=== PATIENT | male | born 1985 | race Caucasian/White ===

== ENCOUNTER 2016-11-10 16:26 | Emergency (ER) | payer OTHER ==
[~2016-11-10] VITALS: Ht 185.4 cm; Wt 81.1 kg
[~2016-11-10 16:26] MED LIST: ALBUAER19 INH; AMPH30CA3 PO; CLR10 PO; MULT-506 PO
[2016-11-10 16:27] VITALS: TEMP 36.5; Ht 185.4 cm; Wt 81.1 kg
--- NOTE | 2016-11-10 16:52 | EMERGENCY ROOM VISIT NOTE ---
History Report prepared by Terry: Dandre Contreras Under the Supervision of: Dr. Beto Aguilar M.D. First contact with patient: 16:31 Chief Complaint: MENTAL HEALTH EVALUATION Stated Complaint: DEPRESSION,SUICIDAL History of Present Illness The patient is a 30 year old male who presents to the Emergency Room with complaints of worsening depression beginning a month and a half prior to arrival. He associates suicidal ideation that began one month ago with today's symptoms. The patient states he was sent to the ED by his therapist today due to his suicidal ideation. He notes he was talking to his therapist today, and stated he wanted to get up and jump off the balcony in the therapist's office. The patient states he started taking Zoloft a month ago. He notes he had a relationship that ended a couple months ago, which his therapist believed was bringing up deeper issues. 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 He denies injuring himself today. 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 Review of Systems See HPI for pertinent positives & negatives. A total of 10 systems reviewed and were otherwise negative. Past Medical & Surgical Medical Problems: (1) ADHD (attention deficit hyperactivity disorder) Surgical Problems: (1) No significant past surgical history (2) S/P appendectomy Family History Hypertension Social History Smoking Status: Never Smoker Alcohol Use: occasionally Marital Status: single Occupation Status: [employer] student Current/Historical Medications Scheduled Atomoxetine (Strattera), 80 MG PO QAM Loratadine (Claritin), 10 MG PO DAILY Sertraline (Zoloft), 50 MG PO DAILY Scheduled PRN Ibuprofen (Motrin), 400 MG PO Q6H PRN for Pain Allergies Uncoded Allergies: CATS (Allergy, Unknown, CONGESTION, 05/24/15) HORSES (Allergy, Unknown, CONGESTION, 05/24/15) Physical Exam Vital Signs Date Time Temp Pulse Resp B/P Pulse Ox O2 Delivery O2 Flow Rate FiO2 11/10/16 22:00 79 16 150/65 98 11/10/16 19:00 108 20 135/100 100 11/10/16 16:27 36.5 57 16 138/86 96 Room Air Physical Exam CONSTITUTIONAL: No acute distress HEENT: No icterus, moist mucous membranes NECK: No meningismus, trachea is midline. CARDIOVASCULAR: Regular rate, normal perfusion RESPIRATORY: Unlabored breathing. Clear to auscultation. GASTROINTESTINAL: Non-tender GENITOURINARY: No flank tenderness MUSCULOSKELETAL: Full range of motion NEUROLOGIC: No acute gross focal deficits. PSYCHIATRIC: Appropriate affect. Normal prosody of speech. SKIN: Normal for ethnicity. Medical Decision & Procedures Laboratory Results 11/10/16 17:22 Red Blood Count 5.01, Mean Corpuscular Volume 85.4, Mean Corpuscular Hemoglobin 30.3, Mean Corpuscular Hemoglobin Concent 35.5, Mean Platelet Volume 9.8, Neutrophils (%) (Auto) 74.5, Lymphocytes (%) (Auto) 15.1, Monocytes (%) (Auto) 9.6, Eosinophils (%) (Auto) 0.6, Basophils (%) (Auto) 0.2, Neutrophils # (Auto) 6.41, Lymphocytes # (Auto) 1.30, Monocytes # (Auto) 0.83, Eosinophils # (Auto) 0.05, Basophils # (Auto) 0.02 11/10/16 17:22 Test 11/10/16 17:08 11/10/16 17:22 11/10/16 17:50 Bedside Glucose 93 mg/dl (70-99) White Blood Count 8.61 K/uL (4.8-10.8) Red Blood Count 5.01 M/uL (4.7-6.1) Hemoglobin 15.2 g/dL (14.0-18.0) Hematocrit 42.8 % (42-52) Mean Corpuscular Volume 85.4 fL (80-100) Mean Corpuscular Hemoglobin 30.3 pg (25-34) Mean Corpuscular Hemoglobin Concent 35.5 g/dl (32-36) Platelet Count 261 K/uL (130-400) Mean Platelet Volume 9.8 fL (7.4-10.4) Neutrophils (%) (Auto) 74.5 % Lymphocytes (%) (Auto) 15.1 % Monocytes (%) (Auto) 9.6 % Eosinophils (%) (Auto) 0.6 % Basophils (%) (Auto) 0.2 % Neutrophils # (Auto) 6.41 K/uL (1.4-6.5) Lymphocytes # (Auto) 1.30 K/uL (1.2-3.4) Monocytes # (Auto) 0.83 K/uL (0.11-0.59) Eosinophils # (Auto) 0.05 K/uL (0-0.5) Basophils # (Auto) 0.02 K/uL (0-0.2) RDW Standard Deviation 38.7 fL (36.4-46.3) RDW Coefficient of Variation 12.4 % (11.5-14.5) Immature Granulocyte % (Auto) 0.0 % Immature Granulocyte # (Auto) 0.00 K/uL (0.00-0.02) Anion Gap 12.0 mmol/L (3-11) Est Creatinine Clear Calc Drug Dose 151.2 ml/min Estimated GFR () 138.0 Estimated GFR (Non- 119.0 BUN/Creatinine Ratio 16.6 (10-20) Calcium Level 8.9 mg/dl (8.5-10.1) Total Bilirubin 0.5 mg/dl (0.2-1) Direct Bilirubin 0.1 mg/dl (0-0.2) Aspartate Amino Transf (AST/SGOT) 13 U/L (15-37) Alanine Aminotransferase (ALT/SGPT) 29 U/L (12-78) Alkaline Phosphatase 98 U/L (45-117) Total Protein 7.6 gm/dl (6.4-8.2) Albumin 3.8 gm/dl (3.4-5.0) Globulin 3.8 gm/dl (2.5-4.0) Albumin/Globulin Ratio 1.0 (0.9-2) Thyroid Stimulating Hormone (TSH) 1.670 uIu/ml (0.300-4.500) Ethyl Alcohol mg/dL < 3.0 mg/dl (0-3) Urine Color YELLOW Urine Appearance CLEAR (CLEAR) Urine pH 8.0 (4.5-7.5) Urine Specific [place] 1.006 (1.000-1.030) Urine Protein NEG (NEG) Urine Glucose (UA) NEG (NEG) Urine Ketones NEG (NEG) Urine Occult Blood NEG (NEG) Urine Nitrite NEG (NEG) Urine Bilirubin NEG (NEG) Urine Urobilinogen NEG (NEG) Urine Leukocyte Esterase NEG (NEG) Urine Opiates Screen NEG (NEG) Urine Methadone, Qualitative NEG (NEG) Urine Barbiturates NEG (NEG) Urine Phencyclidine (PCP) Level NEG (NEG) Ur Amphetamine/Methamphetamine NEG (NEG) MDMA (Ecstasy) Screen NEG (NEG) Urine Benzodiazepines Screen NEG (NEG) Urine Cocaine Metabolite NEG (NEG) Urine Marijuana (THC) NEG (NEG) Labs reviewed by ED physician. ED Course 1638: Past medical records reviewed. The patient was evaluated in room A5. A complete history and physical examination was performed. 2139: The patient is being evaluated by [facility]. Medical Decision Differential diagnoses include but are not limited to; adjustment disorder, depression. 30-year-old presented from outpatient therapist office for psychiatric screening of depression related symptoms. Medically clear. [facility], [facility], evaluated patient and outpatient follow-up arranged. Impression Primary Impression: Depression Scribe Attestation The scribe's documentation has been prepared under my direction and personally reviewed by me in its entirety. I confirm that the note above accurately reflects all work, treatment, procedures, and medical decision making performed by me. Departure Information Referrals No Doctor, Assigned (PCP) Patient Instructions My [facility]
[2016-11-10] MEDS ORDERED: SERT50TA PO (17:17)
[2016-11-10] MEDS ORDERED: IBUP-1459 PO (17:17)
[2016-11-10] MEDS ORDERED: ATOM40CA PO (17:17)
[2016-11-10 17:33] LABS: BASO % 0.2 %; BASO ABS # 0.02 K/uL (0-0.2); COMPLETE YES; EOS % 0.6 %; HEMATOCRIT 42.8 % (42-52); LYMPH % 15.1 %; MEAN CELL VOLUME 85.4 fL (80-100); MEAN CORPUSCULAR HEMOGLOBIN 30.3 pg (25-34); MEAN CORPUSCULAR HGB CONC 35.5 g/dl (32-36); MEAN PLATELET VOLUME 9.8 fL (7.4-10.4); MONO % 9.6 %; NEUT % 74.5 %; PLATELET COUNT 261 K/uL (130-400); RED BLOOD COUNT 5.01 M/uL (4.7-6.1); WHITE BLOOD COUNT 8.61 K/uL (4.8-10.8)
[2016-11-10 17:50] LABS: BUN/CREATININE RATIO 16.6 (10-20); CALCIUM 8.9 mg/dl (8.5-10.1); CREATININE 0.8 mg/dl (0.60-1.40); POTASSIUM 3.7 mmol/L (3.5-5.1)
[2016-11-10 18:00] LABS: THYROID STIMULATING HORMONE 1.67 uIu/ml (0.300-4.500)
[2016-11-10 18:08] LABS: URINE APPEARANCE CLEAR (CLEAR); URINE BILIRUBIN NEG (NEG); URINE COLOR YELLOW; URINE NITRITE NEG (NEG); URINE SPECIFIC GRAVITY 1.006 (1.000-1.030); UROBILINOGEN NEG (NEG)
[2016-11-10 18:16] LABS: MANUAL MICROSCOPIC REQUIRED? NO; REVIEW REQ? NO
[2016-11-10 18:34] LABS: BENZODIAZEPINE, URINE NEG (NEG); COCAINE,URINE NEG (NEG); PHENCYCLIDINE, URINE NEG (NEG)
[2016-11-10 22:00] VITALS: BP 150/65; PULSE 79; O2SAT 98
== END 2016-11-10 22:53 | disposition home or self-care (01) ==
LOC: C.EDB 16:27 → C.EDA 22:53
DX: F32.9 Major depressive disorder, single episode, unspecified (principal); R45.851 Suicidal ideations; F90.0 Attention-deficit hyperactivity disorder, predominantly inattentive type; Z79.899 Other long term (current) drug therapy; Z82.49 Family history of ischemic heart disease and other diseases of the circulatory system

== ENCOUNTER 2016-11-12 13:58 | Inpatient (IN) | payer OTHER ==
[~2016-11-12] VITALS: Ht 185.4 cm; Wt 75.8 kg
[~2016-11-12 13:58] MED LIST changes: -ALBUAER19 INH; -AMPH30CA3 PO; +ATOM40CA PO; +IBUP-1459 PO; -MULT-506 PO; +SERT50TA PO
[2016-11-12 14:36] LABS: URINE APPEARANCE CLEAR (CLEAR); URINE BILIRUBIN NEG (NEG); URINE COLOR DK YELLOW; URINE NITRITE NEG (NEG); URINE SPECIFIC GRAVITY 1.025 (1.000-1.030); UROBILINOGEN NEG (NEG)
--- NOTE | 2016-11-12 14:38 | EMERGENCY ROOM VISIT NOTE ---
History Report prepared by Terry: Lilliana Liao Under the Supervision of: Dr. Harsh Guzmán D.O. First contact with patient: 14:08 Chief Complaint: MENTAL HEALTH EVALUATION Stated Complaint: DEPRESSION History of Present Illness The patient is a 30 year old male who presents to the Emergency Room with complaints of severe depression starting a few months ago and worsening 2 weeks ago. The patient also complains of suicidal ideation without a plan. He was evaluated in the Emergency Room 2 days ago for similar symptoms but reports that his symptoms have continued to worsen since he was discharged. [facility] evaluated the patient on-site and referred him to the Emergency Room. He has a history of depression. He does not have a history of suicide attempt. He takes Zoloft and denies missing any doses. He denies any drug or alcohol use. Pt denies headache, change in vision, fevers, chest pain, shortness of breath, nausea, vomiting, diarrhea, and pain with urination. Source of History: patient Onset: a few months ago Position: other (global) Symptom Intensity: severe Quality: other (depression) Timing: worsening Associated Symptoms: No SOB, No chest pain, No diarrhea, No fevers, No headache, No nausea, No vomiting Review of Systems See HPI for pertinent positives & negatives. A total of 10 systems reviewed and were otherwise negative. Past Medical & Surgical Medical Problems: (1) ADHD (attention deficit hyperactivity disorder) (2) Depression Surgical Problems: (1) No significant past surgical history (2) S/P appendectomy Family History Hypertension Social History Smoking Status: Current Some Day Smoker Alcohol Use: occasionally Marital Status: single Occupation Status: [employer] student Current/Historical Medications Scheduled Atomoxetine (Strattera), 80 MG PO QAM Loratadine (Claritin), 10 MG PO DAILY Sertraline (Zoloft), 50 MG PO DAILY Scheduled PRN Ibuprofen (Motrin), 400 MG PO Q6H PRN for Pain Allergies Uncoded Allergies: CATS (Allergy, Unknown, CONGESTION, 05/24/15) HORSES (Allergy, Unknown, CONGESTION, 05/24/15) Physical Exam Vital Signs Date Time Temp Pulse Resp B/P Pulse Ox O2 Delivery O2 Flow Rate FiO2 11/12/16 16:34 99 17 136/95 97 11/12/16 15:13 101 17 138/97 96 Room Air 11/12/16 14:03 36.8 120 18 136/83 97 Room Air Physical Exam GENERAL: Sitting up in bed, anxious, in no acute distress, nontoxic. EYE EXAM: normal conjunctiva OROPHARYNX: no exudate, no erythema, lips, buccal mucosa, and tongue normal and mucous membranes are moist NECK: supple, no nuchal rigidity, no adenopathy, non-tender LUNGS: Clear to auscultation. Normal chest wall mechanics HEART: Tachycardic rate. no murmurs, S1 normal and S2 normal ABDOMEN: abdomen soft, non-tender, normo-active bowel sounds, no masses, no rebound or guarding. BACK: Back is symmetrical on inspection and there is no deformity, no midline tenderness, no CVA tenderness. SKIN: no rashes and no bruising UPPER EXTREMITIES: upper extremities are grossly normal. LOWER EXTREMITIES: No pitting edema. NEURO EXAM: Normal sensorium, cranial nerves II-XII grossly intact, normal speech, no gross weakness of arms, no gross weakness of legs. PSYCHIATRIC: Admits to suicidal ideation without a plan. Medical Decision & Procedures Laboratory Results Test 11/12/16 14:20 Urine Color DK YELLOW Urine Appearance CLEAR (CLEAR) Urine pH 6.0 (4.5-7.5) Urine Specific [place] 1.025 (1.000-1.030) Urine Protein NEG (NEG) Urine Glucose (UA) NEG (NEG) Urine Ketones TRACE (NEG) Urine Occult Blood NEG (NEG) Urine Nitrite NEG (NEG) Urine Bilirubin NEG (NEG) Urine Urobilinogen NEG (NEG) Urine Leukocyte Esterase TRACE (NEG) Urine WBC (Auto) 1-5 /hpf (0-5) Urine RBC (Auto) 0-4 /hpf (0-4) Urine Hyaline Casts (Auto) 1-5 /lpf (0-5) Urine Epithelial Cells (Auto) 5-10 /lpf (0-5) Urine Bacteria (Auto) NEG (NEG) Urine Opiates Screen NEG (NEG) Urine Methadone, Qualitative NEG (NEG) Urine Barbiturates NEG (NEG) Urine Phencyclidine (PCP) Level NEG (NEG) Ur Amphetamine/Methamphetamine NEG (NEG) MDMA (Ecstasy) Screen NEG (NEG) Urine Benzodiazepines Screen NEG (NEG) Urine Cocaine Metabolite NEG (NEG) Urine Marijuana (THC) NEG (NEG) Laboratory results per my review. Medications Administered Medications (Trade) Dose Ordered Sig/Jen Route Start Time Stop Time Status Last Admin Dose Admin Hydroxyzine HCl (Vistaril Tab) 25 mg Q4H PRN PO 11/12/16 16:30 12/12/16 16:29 11/12/16 18:07 25 MG ED Course ED COURSE: Vital signs were reviewed and showed tachycardic. The patients medical record was reviewed The above diagnostic studies were performed and reviewed. ED treatments and interventions as stated above. 1408: The patient was evaluated in room C01B. A complete history and physical examination was performed. 1419: I discussed the patient's case with [address] [place] [address]. They are only requesting a urinalysis. 1710: Upon reevaluation, the patient is resting comfortably.I discussed my findings with the patient and he understands and agrees with the treatment plan. Based on the patients age, coexisting illnesses, exam and lab findings the decision to treat as an inpatient was made. The patient remained stable while under my care. The patient will be evaluated for further management. Medical Decision Differential diagnosis: Etiologies such as mood disorder, infection, hypoglycemia, electrolyte abnormalities, cardiac sources, intracerebral event, toxicologic, neurologic, as well as others were entertained. Patient is a 30-year-old male with a history of depression on Zoloft presents the ER for suicidal thoughts. He notes that this has been present for the past several months but has significantly worsened over the past 2 weeks. He currently has no plan. He was evaluated by [facility] in the field who recommended evaluation ER. Currently [facility] [address] is holding a bed for him awaiting for a UA and urine tox. I did discuss this with charge nurse on [address]. Since he had blood work 2 days ago he does not need any additional blood work. He was slightly tachycardic which I believe is secondary to him being fairly anxious. Patient has no other bites at this time. UA and urine tox was obtained and was unremarkable. Heart rate trended down. Patient was admitted to [address] [place] [address] on a 201. Consults Time Called: 1418 Consulting Physician: [address] [place] [address] Returned Call: 1419 I discussed the patient's case with [address] [place] [address]. They are only requesting a urinalysis. Impression Primary Impression: Mood disorder Additional Impressions: Depression Suicidal ideation Scribe Attestation The scribe's documentation has been prepared under my direction and personally reviewed by me in its entirety. I confirm that the note above accurately reflects all work, treatment, procedures, and medical decision making performed by me. Departure Information Dispostion Mental Health Acute Care Referrals No Doctor, Assigned (PCP) Patient Instructions My [facility] Problem Qualifiers Additional Impressions: Depression Depression Type: unspecified Qualified Codes: F32.9 - Major depressive disorder, single episode, unspecified
[2016-11-12 14:41] LABS: MANUAL MICROSCOPIC REQUIRED? NO; REVIEW REQ? NO
[2016-11-12 15:17] LABS: BENZODIAZEPINE, URINE NEG (NEG); COCAINE,URINE NEG (NEG); PHENCYCLIDINE, URINE NEG (NEG)
[2016-11-12] MEDS ORDERED: ALUMINUM/MAGNESIUM SUSP 30 ML UDC PO PRN (16:30)
[2016-11-12] MEDS ORDERED: SODIUM CHLORIDE 0.65% NA SOLN 45 ML (OCEAN) PRN (16:30)
[2016-11-12] MEDS ORDERED: IBUPROFEN 200 MG TAB PO PRN (16:30)
[2016-11-12] MEDS ORDERED: BISMUTH SUBSALICYLATE PER ML OMNICELL CHARGE PO PRN (16:30)
[2016-11-12] MEDS ORDERED: MAGNESIUM HYDROXIDE SUSP 30 ML UDC PO PRN (16:30)
[2016-11-12 16:34] VITALS: O2SAT 97
[2016-11-12 17:07] VITALS: BP 144/89; PULSE 116; TEMP 36.6; Ht 185.4 cm; Wt 75.8 kg
[2016-11-12] MEDS: hydrOXYzine HCL 25 MG TAB PO PRN (18:07)
[2016-11-13] MEDS: hydrOXYzine HCL 25 MG TAB PO PRN ×2 (05:22→22:43)
[2016-11-13 06:48] VITALS: BP_SYST 143; BP_SYST 150; BP_DIAS 91; BP_DIAS 92; PULSE 102; PULSE 109; TEMP 36.3
[2016-11-13] MEDS ORDERED: SERTRALINE HCL 50 MG TAB PO SCH (09:00)
[2016-11-13] MEDS: LORATADINE 10 MG TAB PO SCH (09:28)
[2016-11-13] MEDS: ATOMOXETINE 25 MG CAP PO SCH (09:29)
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
[2016-11-13] MEDS ORDERED: SERTRALINE HCL 100 MG TAB PO ONE (12:00)
[2016-11-14 06:56] VITALS: BP_SYST 146; BP_SYST 149; BP_DIAS 77; BP_DIAS 83; PULSE 111; PULSE 93; TEMP 36.5
[2016-11-14] MEDS: SERTRALINE HCL 100 MG TAB PO SCH (08:57)
[2016-11-14] MEDS: ATOMOXETINE 25 MG CAP PO SCH (08:58)
[2016-11-14] MEDS: LORATADINE 10 MG TAB PO SCH (08:58)
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
[2016-11-14] MEDS: hydrOXYzine HCL 25 MG TAB PO PRN ×2 (17:49→22:43)
[2016-11-14] MEDS: ACETAMINOPHEN 325 MG TAB PO PRN (23:09)
[2016-11-15 06:57] VITALS: BP_SYST 132; BP_SYST 137; BP_DIAS 74; BP_DIAS 81; PULSE 99; TEMP 36.5
--- NOTE | 2016-11-15 08:17 | Psychiatric Progress Notes ---
Progress Note Date of Service Nov 15, 2016. 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 Stress includes the recent breakup of a relationship triggering feelings of abandonement and self hatred. Chief Complaint "Better this morning". Subjective Patient was seen & assessed interval progress reviewed with Treatment Team. Staff report he was talking about suicidal thoughts in group, was looking out the windows and looking for places he could jump to his , and talking about why society wants to stop people from committing suicide if they want to. This morning, he states that so far, his day is going better than the past several days. He notes that mornings tend to be the hardest part of the day for him. This morning, he woke up and felt slightly more energized, and it was easier to get up, get showered, and start his day. He thinks his mood is slightly improved, but continues to struggle with feeling depressed, with low self-esteem, and anxiety. He describes intrusive thoughts of his ex-girlfriend , imagining her "with her new person being happy, while I'm in here feeling bad about myself." He also had thoughts about text messages she sent him when they broke up, which caused him to feel "shame, I feel like a weak person." He feels that takes a lot of mental energy to try to turn himself away from these thoughts. He has been working on some mindfulness activities, and is hopeful that these will help him. He continues to have suicidal thoughts, although he have lessened slightly today, although he states he's already thought about suicide twice this morning. Even so, this is an improvement from the past 2 days, where "I felt flooded by the suicidal thoughts." He reports good support from his mother and friends, which she thinks has been helpful. One of his friends is coming to visit today, and he wants to work on a plan to increase socialization after discharge. He notes that he feels "tense" just thinking about discharge planning, and worries about returning to his apartment, as he associates it with his depression. Sleep Information Total Hours of Sleep: 6.00 Meal Information Percent of Breakfast Consumed: 100 Percent of Lunch Consumed: 100 Percent of Dinner Consumed: 60 Mental Status Exam During interview pt is: alert and oriented, cooperative Appearance: appropriately dressed (in jeans and a sweater), other (good grooming and hygiene) Eye contact is: good Motor behavior is: steady gait & station, no abnormal motor movements Speech: normal in rate, rhythm & volume Affect: depressed, anxious (but reactive and appropriate) Mood is: other ("a little bit better") Thought process: goal directed, clear, coherent Thought content: reality based without delusions Suicidal thought are: present, Plan: present, Intent: denied Homicidal thoughts are: denied Hallucinations: denies auditory, denies visual Cognition: memory grossly intact, attention grossly intact Intelligence estimated to be: average Insight: impaired Judgement: impaired Impression Actively participating in treatment, attending groups and working on mindfulness activities independently, but still with SI and thoughts to jump from a building. No side effects to meds and we'll continue to increase sertraline. Continued Inpatient Care The patient requires inpateint care due to the severity of his condition and the risk for self harm if discharged. Plan (1) Major depressive disorder, recurrent severe without psychotic features 11/14 - Continue Zoloft 100 mg daily with plans to titrate as quickly as possible - Q 15 min checks for safety - Encourage participation in group and individual counseling - Family meeting with mother completed yesterday - The patient will require a psychiatric prescriber post discharge - Coordinate care with current therapist - Assist the patient to learn and utilize healthy coping strategies - Contact office of student affairs if needed 11/15 - Increase sertraline to 150mg for tomorrow; continue home dose of Strattera. - Referring to [facility] for psychiatric aftercare. - Encouraged to start working on discharge planning, making plans with friends to limit isolation after discharge. (2) ALEXA (generalized anxiety disorder) 11/14 - Zoloft as above - Explore concepts of mindfulness with the patient - Encourage exercise, distracting activities - Encourage thought stopping exercises to minimize negative self talk Discharge / Aftercare Planning Primary Care Physician: Name: [facility] Psychiatrist: Name: none Therapist: Name: Latha Lay, [address] [place] [address] Childcare Worker: Name: none Visit Code E&M Code: 60669 Risk Factors Assessment Male: Yes : Yes /single/: Yes Higher / Fall in social status: No Access to guns: No Health problems: No Mental Health Diagnoses: Yes Substance use disorders: No Previous attempt: No Previous psychiatric stay: No Hopelessness: Yes Smoker: No Protective Factors Assessment Episcopalian beliefs: No : No Responsible for young children: No Employed: Yes Stable relationships: No Supportive family: Yes Good rapport with provider: Yes Data Vital Signs Last 24 Hrs: Date Time Temp Pulse Resp B/P Pulse Ox O2 Delivery O2 Flow Rate FiO2 11/15/16 06:57 36.5 99 16 132/81 99 137/74 Meds Administered Last 24 Hrs: Meds Administered (Past 24Hrs) Medications (Trade) Dose Ordered Sig/Jen Route Start Time Stop Time Status Last Admin Dose Admin Loratadine (Claritin Tab) 10 mg DAILY PO 11/13/16 09:00 12/13/16 08:59 11/14/16 08:58 10 MG Sertraline HCl (Zoloft Tab) 50 mg DAILY PO 11/13/16 09:00 11/13/16 11:11 DC 11/13/16 09:29 50 MG Atomoxetine HCl (Strattera Cap) 75 mg QAM PO 11/13/16 09:00 11/14/16 10:25 DC 11/14/16 08:58 75 MG Sertraline HCl (Zoloft Tab) 100 mg QAM PO 11/14/16 09:00 12/14/16 08:59 11/14/16 08:57 100 MG Sertraline HCl (Zoloft Tab) 50 mg NOW ONCE PO 11/13/16 12:00 11/13/16 12:01 DC 11/13/16 12:21 50 MG
[2016-11-15] MEDS: ATOMOXETINE 40 MG CAP PO SCH (08:55)
[2016-11-15] MEDS: SERTRALINE HCL 100 MG TAB PO SCH (08:55)
[2016-11-15] MEDS: LORATADINE 10 MG TAB PO SCH (08:55)
[2016-11-15] MEDS: hydrOXYzine HCL 25 MG TAB PO PRN (23:24)
[2016-11-15] MEDS: ACETAMINOPHEN 325 MG TAB PO PRN (23:30)
[2016-11-16 06:58] VITALS: BP_SYST 122; BP_SYST 142; BP_DIAS 76; BP_DIAS 99; PULSE 124; PULSE 93; TEMP 36.5
[2016-11-16] MEDS: ATOMOXETINE 40 MG CAP PO SCH (09:13)
[2016-11-16] MEDS: LORATADINE 10 MG TAB PO SCH (09:13)
[2016-11-16] MEDS: SERTRALINE HCL 100 MG TAB PO SCH (09:14)
--- NOTE | 2016-11-16 13:59 | Psychiatric Progress Notes ---
Progress Note Date of Service Nov 16, 2016. 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 Stress includes the recent breakup of a relationship triggering feelings of abandonement and self hatred. Chief Complaint "OK". Subjective Patient was seen & assessed interval progress reviewed with Treatment Team. The patient is found in the group room looking out of the window. He admits that he is ruminating, specifically about it being a Saturday night which means that his ex will likely be going on a date tonight. He also woke early this AM again with ruminations. Overall however, he says that he is ruminating less, and is feeling closer to being able to go home. His mother is in town and caring for his dog , and would like to consider going home tomorrow if still moving forward. Mother will be able to stay through Saturday to help with the transition. When asked what he thinks other people see when they meet him, he is able to say that he is intelligent, handsome, articulate, together, and says that he believes those things about himself, but can't then mesh that with his ruminative thoughts that he wasn't good enough. He denies SI. Had difficult sleep last night because of his roommate and is tired today. Appetite is good. Review of Systems Constitutional: + fatigue ENT: No dental problems, No hearing loss, No nasal symptoms, No problem reported, No sore throat, No tinnitus, No trouble swallowing, No unusual epistaxis Respiratory: No cough, No dyspnea at rest, No dyspnea on exertion, No hemoptysis, No problem reported, No shortness of breath, No sputum, No wheezing Cardiovascular: No PND, No chest pain, No claudication, No edema, No orthopnea , No palpitations, No problem reported Abdomen: No GI bleeding, No constipation, No diarrhea, No nausea, No pain, No problem reported, No vomiting Musculoskeletal: No calf pain, No joint pain, No muscle pain, No problem reported, No swelling Neurologic: No balance problems, No memory loss, No numbness/tingling, No paralysis, No problem reported, No vertigo, No weakness Psychiatric: + anxiety Integumentary: No bleeding, No color change, No itch, No new/changing skin lesions, No problem reported, No rash Sleep Information Total Hours of Sleep: 4.00 Meal Information Percent of Breakfast Consumed: 100 Percent of Lunch Consumed: 100 Percent of Dinner Consumed: 95 Mental Status Exam During interview pt is: alert and oriented, cooperative Appearance: appropriately dressed, appropriately groomed Eye contact is: good Motor behavior is: steady gait & station, no abnormal motor movements Speech: normal in rate, rhythm & volume Affect: anxious Mood is: anxious Thought process: goal directed, clear, coherent Thought content: cognitive distortions, reality based without delusions Suicidal thought are: present, Plan: present, Intent: denied Homicidal thoughts are: denied Hallucinations: denies auditory, denies visual Cognition: memory grossly intact, attention grossly intact Intelligence estimated to be: average Insight: impaired Judgement: impaired Impression No SI today, and feeling slightly in better control of rumination. Is feeling closer to being able to go home and would like to consider tomorrow as mother will be able to be with him until Saturday. Zoloft up to 150 mg. as of today and will remain at this dose until seen by OP. Continued Inpatient Care [facility] due to the severity of his condition and the risk for self harm if discharged. Plan (1) Major depressive disorder, recurrent severe without psychotic features 11/14 - Continue Zoloft 100 mg daily with plans to titrate as quickly as possible - Q 15 min checks for safety - Encourage participation in group and individual counseling - Family meeting with mother completed yesterday - The patient will require a psychiatric prescriber post discharge - Coordinate care with current therapist - Assist the patient to learn and utilize healthy coping strategies - Contact office of student affairs if needed 11/15 - Increase sertraline to 150mg for tomorrow; continue home dose of Strattera. - Referring to [facility] for psychiatric aftercare. - Encouraged to start working on discharge planning, making plans with friends to limit isolation after discharge. (2) ALEXA (generalized anxiety disorder) 11/14 - Zoloft as above - Explore concepts of mindfulness with the patient - Encourage exercise, distracting activities - Encourage thought stopping exercises to minimize negative self talk Discharge / Aftercare Planning Primary Care Physician: Name: [facility] Appointment Notes: As needed Psychiatrist: Name: Dara ADAMS [facility] Date of Appointment: Dec 11, 2016 Time of Appointment: 9:45am Therapist: Name: Latha Lay, [address] [facility] Appointment Notes: Tuesdays and Saturdays as scheduled Freelance Writer: Name: none Visit Code E&M Code: 83935 Risk Factors Assessment Male: Yes : Yes /single/: Yes Higher / Fall in social status: No Access to guns: No Health problems: No Mental Health Diagnoses: Yes Substance use disorders: No Previous attempt: No Previous psychiatric stay: No Hopelessness: Yes Smoker: No Protective Factors Assessment Spiritism beliefs: No : No Responsible for young children: No Employed: Yes Stable relationships: No Supportive family: Yes Good rapport with provider: Yes Data Vital Signs Last 24 Hrs: Date Time Temp Pulse Resp B/P Pulse Ox O2 Delivery O2 Flow Rate FiO2 11/16/16 06:58 36.5 124 16 122/76 93 142/99 Meds Administered Last 24 Hrs: Meds Administered (Past 24Hrs) Medications (Trade) Dose Ordered Sig/Jen Route Start Time Stop Time Status Last Admin Dose Admin Sertraline HCl (Zoloft Tab) 150 mg QAM PO 11/16/16 09:00 12/16/16 08:59 11/16/16 09:14 150 MG Lab Results Last 24 Hrs: Test 11/12/16 14:20 Urine Color DK YELLOW Urine Appearance CLEAR (CLEAR) Urine pH 6.0 (4.5-7.5) Urine Specific [place] 1.025 (1.000-1.030) Urine Protein NEG (NEG) Urine Glucose (UA) NEG (NEG) Urine Ketones TRACE (NEG) Urine Occult Blood NEG (NEG) Urine Nitrite NEG (NEG) Urine Bilirubin NEG (NEG) Urine Urobilinogen NEG (NEG) Urine Leukocyte Esterase TRACE (NEG) Urine WBC (Auto) 1-5 /hpf (0-5) Urine RBC (Auto) 0-4 /hpf (0-4) Urine Hyaline Casts (Auto) 1-5 /lpf (0-5) Urine Epithelial Cells (Auto) 5-10 /lpf (0-5) Urine Bacteria (Auto) NEG (NEG) Urine Opiates Screen NEG (NEG) Urine Methadone, Qualitative NEG (NEG) Urine Barbiturates NEG (NEG) Urine Phencyclidine (PCP) Level NEG (NEG) Ur Amphetamine/Methamphetamine NEG (NEG) MDMA (Ecstasy) Screen NEG (NEG) Urine Benzodiazepines Screen NEG (NEG) Urine Cocaine Metabolite NEG (NEG) Urine Marijuana (THC) NEG (NEG)
[2016-11-16] MEDS: ACETAMINOPHEN 325 MG TAB PO PRN (21:16)
[2016-11-16] MEDS: hydrOXYzine HCL 25 MG TAB PO PRN (23:19)
[2016-11-17] MEDS: hydrOXYzine HCL 25 MG TAB PO PRN (00:03)
[2016-11-17 06:55] VITALS: BP_SYST 122; BP_SYST 144; BP_DIAS 83; BP_DIAS 89; PULSE 84; PULSE 95; TEMP 36.5
[2016-11-17] MEDS: ATOMOXETINE 40 MG CAP PO SCH (09:12)
[2016-11-17] MEDS: SERTRALINE HCL 100 MG TAB PO SCH (09:12)
[2016-11-17] MEDS: LORATADINE 10 MG TAB PO SCH (09:12)
[2016-11-17] MEDS ORDERED: SERT1TAB92 PO (10:32)
--- NOTE | 2016-11-17 10:38 | Discharge Instructions ---
Discharge Information Report Includes Report will include the: Discharge Instructions & Summary Admission Admission Date / Time: Nov 12, 2016 at 16:40 Reason for Admission: MDR Discharge Discharge Diagnosis / Problem: depression Condition at Discharge: Good Discharge Goals Goal(s): Improve function, Improve disease control Activity Recommendations Activity Limitations: resume your previous activity . Instructions / Follow-Up Instructions / Follow-Up . SPECIAL CARE INSTRUCTIONS: 1. Follow through with your scheduled aftercare appointments. If unable to keep an appointment, please call to reschedule. 2. Take your medication only as prescribed. Medication should not be changed or stopped without the approval of your doctor. In the event of worsening symptoms or concerns about side effects, contact your doctor immediately. 3. Utilize new healthy coping skills, anger management skills, and stress management skills learned during your hospitalization. Journal feelings and process them with a support person. Identify stressors or situations that may result in relapse, deterioration or inappropriate behaviors and develop a plan to deal with those issues. 4. If your coping skills are ineffective and you are in crisis, contact your outpatient providers for direction. If unable to reach your providers, please call the CAN HELP LINE AT or go to the closest Emergency Room. 5. Avoid alcohol and un-prescribed drugs. 6. You have been provided with the Mental Health Advance Directives Pamphlet for your review. AFTERCARE APPOINTMENTS: * Please call your insurance company prior to your scheduled appointment to confirm your aftercare providers are covered. Take your insurance information to your appointments. . Discharge / Aftercare Planning Primary Care Physician: Name: [facility] Appointment Notes: As needed Psychiatrist: Name: Dara ADAMS [facility] Date of Appointment: Dec 11, 2016 Time of Appointment: 9:45am Therapist: Name Of Therapist: Latha Lay, [address] [place] [address] Appointment Comments: Tuesdays and Saturdays as scheduled Bridge Carpenter: Name: none Your therapist reported willingness to see you on 11/18/16 if needed. . Follow-Up Care Plan for Follow-Up Care: Keep follow up appointments. Current Hospital Diet Patient's current hospital diet: Regular Diet Discharge Diet Recommended Diet: Regular Diet Procedures Procedures Performed: No Pending Studies Pending Studies at Discharge: No Medical Emergencies . Who to Call and When: Medical Emergencies: For questions or emergencies related to your hospital stay, please contact the Inpatient Behavioral Health Unit at [phone]. A rubber cutter and shape carver is on-call 15/04 for the Behavioral Health Unit for emergencies At any time you feel your situation is an emergency, you may also call 911 immediately. . Non-Emergent Contact Non-Emergency issues call your: Primary Care Provider, Therapist Contact Number: above Advance Directives Existing Advance Directive: No Do You Have an Existing Mental: No Existing Living Will: No Existing Power of Hat And Cap Drying Room Attendant: No Advance Directives Info Given: To Pt/S.O. Discharge Summary Admission HPI Per the Admitting provider: see H&P. Hospital Course (1) Major depressive disorder, recurrent severe without psychotic features 11/14 - Continue Zoloft 100 mg daily with plans to titrate as quickly as possible - Q 15 min checks for safety - Encourage participation in group and individual counseling - Family meeting with mother completed yesterday - The patient will require a psychiatric prescriber post discharge - Coordinate care with current therapist - Assist the patient to learn and utilize healthy coping strategies - Contact office of student affairs if needed 11/15 - Increase sertraline to 150mg for tomorrow; continue home dose of Strattera. - Referring to [facility] for psychiatric aftercare. - Encouraged to start working on discharge planning, making plans with friends to limit isolation after discharge. (2) ALEXA (generalized anxiety disorder) 11/14 - Zoloft as above - Explore concepts of mindfulness with the patient - Encourage exercise, distracting activities - Encourage thought stopping exercises to minimize negative self talk Risk Factors Assessment Male: Yes : Yes /single/: Yes Higher / Fall in social status: No Access to guns: No Health problems: No Mental Health Diagnoses: Yes Substance use disorders: No Previous attempt: No Previous psychiatric stay: No Hopelessness: Yes Smoker: No Protective Factors Assessment Caodaism beliefs: No : No Responsible for young children: No Employed: Yes Stable relationships: No Supportive family: Yes Good rapport with provider: Yes Day of Discharge Assessment [place] feels calm and improved from admission. He consistently denies suicidal thoughts and verbalizes safety plan and commitment to continuing his outpatient treatment. His thoughts are well organized and he plans to spend time with his mother today who is visiting from out of state and can help him settle in at home. Total Time Total Time Spent (min): Less than 30 minutes Total Time Included: examination of the patient, medication reconciliation Tobacco Cessation at Discharge FDA approved Prescription: non-smoker
== END 2016-11-17 11:30 | disposition home or self-care (01) | DRG 885 ==
LOC: C.EDB 13:59 → C.MHU 16:40
PROVIDERS: ADMIT Psychiatry & Neurology Psychiatry; ATTEND Psychiatry & Neurology Psychiatry
DX: F33.2 Major depressive disorder, recurrent severe without psychotic features (principal); R45.851 Suicidal ideations; F90.9 Attention-deficit hyperactivity disorder, unspecified type; F17.210 Nicotine dependence, cigarettes, uncomplicated; J45.909 Unspecified asthma, uncomplicated; Z79.899 Other long term (current) drug therapy; Z81.8 Family history of other mental and behavioral disorders; Z82.0 Family history of epilepsy and other diseases of the nervous system; Z82.49 Family history of ischemic heart disease and other diseases of the circulatory system